=== PATIENT | female | born 1975 | race African-American/Black ===

== ENCOUNTER 2020-02-05 10:54 | Emergency (ER) | payer BC ==
[2020-02-05 11:15] VITALS: BP 116/81; PULSE 101; TEMP 99.4; BMI 18.7
--- NOTE | 2020-02-05 11:45 | PDOC ---
History of Present Illness - General Chief Complaint: Shortness of Breath Stated Complaint: SOB Time Seen by Provider: 02/05/20 11:20 - History of Present Illness Initial Comments: 02/05/20 11:43 44-year-old female with a past medical history of asthma presents for evaluation of cough and asthma exacerbation x1 day Past History - Medical History Allergies/Adverse Reactions: Allergies Allergy/AdvReac Type Severity Reaction Status Date / Time No Known Allergies Allergy Verified 02/05/20 11:10 - Reproductive History Is Patient Now?: No - Psycho-Social/Smoking History Smoking History: Never smoked Information on smoking cessation initiated: No - Substance Abuse Hx (Audit-C & DAST Scrn) How often the patient has a drink containing alcohol: Never Score: In Men: 4 or > Positive; In Women: 3 or > Positive: 0 Screen Result (Pos requires Nsg. Audit-10AR): Negative In the last yr the pt used illegal drug/Rx for NonMed reason: No Score: Yes response is considered Positive: 0 Screen Result (Positive result requires Nsg. DAST-10): Negative Review of Systems - Review of Systems Constitutional: No: Chills, Fever, Malaise, Night Sweats Respiratory: Yes: Cough, Shortness of Breath *Physical Exam - Vital Signs Last Vital Signs Temp Pulse Resp BP Pulse Ox 99.4 F 101 H 15 116/81 99 02/05/20 11:10 02/05/20 11:10 02/05/20 11:10 02/05/20 11:10 02/05/20 11:10 - Physical Exam 02/05/20 11:43 GENERAL: The patient is awake, alert, and fully oriented, in no acute distress. HEAD: Normal with no signs of trauma. EYES: sclera anicteric, conjunctiva clear. NECK: Normal range of motion LUNGS: Breath sounds equal, clear to auscultation bilaterally. No wheezes, and no crackles. HEART: S1 and S2 without murmur, rub or gallop. ABDOMEN: Soft, nontender, normoactive bowel sounds. No guarding, no rebound. No masses. EXTREMITIES: Normal range of motion, no edema. No clubbing or cyanosis. No cords, erythema, or tenderness. NEUROLOGICAL: Cranial nerves II through XII grossly intact. PSYCH: Normal mood, normal affect. SKIN: Warm, Dry, normal turgor, no rashes or lesions noted. ED Treatment Course - RADIOLOGY Radiology Studies Ordered: Category Date Time Status CHEST PA & LAT [RAD] Stat Radiology 02/05/20 11:24 Completed Medical Decision Making - Medical Decision Making 02/05/20 11:44 Benign examination clear chest x-ray. Patient refused COVID swab. Supportive care for viral syndrome follow-up with primary care physician9 I have reviewed the pathophysiology with the patient. They are in agreement with the treatment plan all questions were answered to their satisfaction. Understanding for follow-up without fail was also conveyed to the patient. Again they are in agreement. Discharge - Discharge Information Problems reviewed: Yes Clinical Impression/Diagnosis: Viral syndrome Condition: Stable Disposition: HOME - Admission No - Follow up/Referral Referrals: Dimas Alvarez MD [Staff Physician] - - Patient Discharge Instructions Additional Instructions: Tylenol and Motrin for any fever or body aches. Return to the emergency room for worsening symptoms continue your asthma medication as directed and without fail follow-up with your primary care physician in 1 to 2 days for further evaluation and treatment options. - Post Discharge Activity
== END 2020-02-05 12:00 | disposition home or self-care (01) ==
LOC: JERFT 10:54
DX: J06.9 Acute upper respiratory infection, unspecified (principal)
CPT/HCPCS: 71046-TC-FY; 99283-25